=== PATIENT | female | born 1990 | race African-American/Black ===

== ENCOUNTER 2016-10-01 08:10 | Emergency (ER) | payer SELFPAY ==
[~2016-10-01] VITALS: Ht 167.6 cm; Wt 69.9 kg
[2016-10-01] MEDS ORDERED: PRENATAL COMPL1 EAC1 PO (08:18)
--- NOTE | 2016-10-01 08:26 | Emergency Room Report ---
History of Present Illness General Chief Complaint: Complications Source: Patient Present Illness HPI Patient present with complaints of bilateral lower abdominal cramping and pain Patient reports that started last night However did not think much of it As the discomfort continued today patient was concerning came to the ER Patient reports cramping every few minutes No other complaints of vaginal bleeding or spotting Denies any fall or trauma Denies any fevers or chills Allergies: Coded Allergies: No Known Allergies (Unverified , 10/01/16) Patient History Past Medical History: see triage record Pertinent Family History: none Last Menstrual Period: 02/17/2017 Now: Yes : 4 Para: 2 Reviewed Nursing Documentation: PMH: Agreed, PSxH: Agreed Nursing Documentation-PMH Past Medical History: No Stated History Review of Systems All Other Systems: negative except mentioned in HPI Physical Exam Vital Signs Date Time Temp Pulse Resp B/P Pulse Ox O2 Delivery O2 Flow Rate FiO2 10/01/16 08:14 98.4 102 18 123/71 100 Room Air Sp02 EP Interpretation: reviewed, normal General Appearance: well appearing, no apparent distress Head: normocephalic, atraumatic Eyes: bilateral eye EOMI, bilateral eye PERRL ENT: normal pharynx Neck: supple, thyroid normal Respiratory: lungs clear Cardiovascular #1: regular rate, rhythm Gastrointestinal: other - abdomen otherwise nontender on palpation Genitourinary: no CVA tenderness Musculoskeletal: back normal Neurologic: alert, oriented x3, responsive Skin: no rash Lymphatic: no adenopathy Medical Decision Making Diagnostic Impression: Primary Impression: Abdominal pain affecting Additional Impression: UTI (urinary tract infection) ER Course Patient's bedside ultrasound reveals intrauterine heart tone approximately 140-150 Patient's urine sample also shows infectious pathology patient was provided antibiotics for that At this time as we do not have access to OB services patient required higher level of care transfer [facility] labor and delivery was contacted Dr. Cowan accepting the patient Patient will require rule out for early labor Labs Test 10/01/16 08:20 10/01/16 08:33 Urine Color Yellow Urine Appearance Slightly cloudy Urine pH 7 (4.5-8.0) Urine Specific [place] 1.015 (1.005-1.035) Urine Protein 1+ (NEGATIVE) Urine Glucose (UA) Negative (NEGATIVE) Urine Ketones 3+ (NEGATIVE) Urine Occult Blood 2+ (NEGATIVE) Urine Nitrite Negative (NEGATIVE) Urine Bilirubin Negative (NEGATIVE) Urine Urobilinogen 1 MG/DL (0.0-1.0) Urine Leukocyte Esterase 2+ (NEGATIVE) Urine RBC 5-10 /HPF (0 - 2) Urine WBC 5-10 /HPF (0 - 2) Urine Squamous Epithelial Cells Many /LPF (NONE/OCC) Urine Bacteria Few /HPF (NONE) White Blood Count 10.2 K/UL (4.8-10.8) Red Blood Count 3.90 M/UL (4.20-5.40) Hemoglobin 12.0 G/DL (12.0-16.0) Hematocrit 36.0 % (37.0-47.0) Mean Corpuscular Volume 92 FL (80-99) Mean Corpuscular Hemoglobin 30.6 PG (27.0-31.0) Mean Corpuscular Hemoglobin Concent 33.2 G/DL (32.0-36.0) Red Cell Distribution Width 13.1 % (11.6-14.8) Platelet Count 197 K/UL (150-450) Mean Platelet Volume 7.3 FL (6.5-10.1) Neutrophils (%) (Auto) 77.2 % (45.0-75.0) Lymphocytes (%) (Auto) 15.9 % (20.0-45.0) Monocytes (%) (Auto) 6.0 % (1.0-10.0) Eosinophils (%) (Auto) 0.3 % (0.0-3.0) Basophils (%) (Auto) 0.6 % (0.0-2.0) Sodium Level 136 mEQ/L (135-145) Potassium Level 4.0 mEQ/L (3.4-4.9) Chloride Level 96 mEQ/L (98-107) Carbon Dioxide Level 21 mEQ/L (20-30) Anion Gap 19 (5-15) Blood Urea Nitrogen 5 mg/dL (7-23) Creatinine 0.5 mg/dL (0.5-0.9) Estimat Glomerular Filtration Rate > 60 mL/min (>60) Glucose Level 88 mg/dL (74-106) Calcium Level 8.8 mg/dL (8.6-10.2) Total Bilirubin 0.2 mg/dL (0.0-1.2) Aspartate Amino Transf (AST/SGOT) 22 U/L (5-40) Alanine Aminotransferase (ALT/SGPT) 9 U/L (3-33) Alkaline Phosphatase 56 U/L (35-104) Total Protein 6.2 g/dL (6.6-8.7) Albumin 3.4 g/dL (3.5-5.2) Globulin 2.8 g/dL Albumin/Globulin Ratio 1.2 (1.0-2.7) Rhythm Strip Diag. Results EP Interpretation: yes Rate: 88 Rhythm: NSR, no PVC's, no ectopy CT/MRI/US Diagnostic Results CT/MRI/US Diagnostic Results : Impression Bedside ultrasound: Limited, heart tone reported at approximately 140, intrauterine noted Last Vital Signs Date Time Temp Pulse Resp B/P Pulse Ox O2 Delivery O2 Flow Rate FiO2 10/01/16 08:14 98.4 102 18 123/71 100 Room Air Status: improved Disposition: XFER [facility] Condition: Improved Referrals: NOT CHOSEN [facility]/,REFERRING (PCP) NICHOLAS BETTENCOURT D.O. Oct 01, 2016 08:26
[2016-10-01] MEDS ORDERED: NITROFURANTOIN100 M2 ORAL (08:46)
[2016-10-01 08:47] VITALS: BP 114/68
[2016-10-01 08:49] LABS: BASOPHILS % (AUTO) 0.6 % (0.0-2.0); EOSINOPHILS % (AUTO) 0.3 % (0.0-3.0); LYMPHOCYTES % (AUTO) 15.9 % (20.0-45.0); MEAN CORPUSCULAR HEMOGLOBIN 30.6 PG (27.0-31.0); MEAN CORPUSCULAR HGB CONC 33.2 G/DL (32.0-36.0); MEAN CORPUSCULAR VOLUME 92 FL (80-99); MEAN PLATELET VOLUME 7.3 FL (6.5-10.1); NEUTROPHILS % (AUTO) 77.2 % (45.0-75.0); PLATELET COUNT 197 K/UL (150-450); RED CELL DISTRIBUTION WIDTH 13.1 % (11.6-14.8); WHITE BLOOD COUNT 10.2 K/UL (4.8-10.8)
[2016-10-01 08:51] LABS: APPEARANCE,URINE SLIGHTLY CLOUDY; KETONES,URINE 3+ (NEGATIVE); LEUKOCYTE ESTERASE ,URINE 2+ (NEGATIVE); NITRITE,URINE NEGATIVE (NEGATIVE); PH,URINE 7 (4.5-8.0); PROTEIN,URINE 1+ (NEGATIVE); UROBILINOGEN,URINE 1 MG/DL (0.0-1.0)
[2016-10-01 08:59] LABS: ALANINE AMINOTRANSFERASE 9 U/L (3-33); ALBUMIN/GLOBULIN RATIO 1.2 (1.0-2.7); ANION GAP 19 (5-15); ASPARTATE AMINO TRANSFERASE 22 U/L (5-40); CALCIUM 8.8 mg/dL (8.6-10.2); CARBON DIOXIDE 21 mEQ/L (20-30); CHLORIDE 96 mEQ/L (98-107); CREATININE 0.5 mg/dL (0.5-0.9); GLOMERULAR FILTRATION RATE > 60 mL/min (>60); HEMOLYSIS 29; SODIUM 136 mEQ/L (135-145); TOTAL PROTEIN 6.2 g/dL (6.6-8.7)
[2016-10-01 09:15] LABS: BACTERIA,URINE FEW /HPF; SQUAMOUS EPITHELIAL CELL,UR MANY /LPF (NONE/OCC)
[2016-10-01 10:04] VITALS: BP 121/59
== END 2016-10-01 10:15 | disposition short-term general hospital (02) ==
LOC: EMR 08:23
DX: O23.40 Unspecified infection of urinary tract in pregnancy, unspecified trimester (principal); Z3A.00 Weeks of gestation of pregnancy not specified
CPT/HCPCS: 36415; 80053; 81003; 85025; 96374

== ENCOUNTER 2018-07-02 19:12 | Emergency (ER) | payer MEDICAID ==
[~2018-07-02] VITALS: Ht 167.6 cm; Wt 61.2 kg
[~2018-07-02 19:12] MED LIST: NITROFURANTOIN100 M2 ORAL; PRENATAL COMPL1 EAC1 PO
[2018-07-02] MEDS ORDERED: NKM (19:20)
[2018-07-02 19:25] VITALS: BP 109/71
--- NOTE | 2018-07-02 19:25 | NUR ---
ER Nurse Note: Pt came from home c/o left rib pain; 8/10 pain with pressure. Pt states she is unable to put on a bra due to pain. Pt stated no trauma, no redness, no recent injuries. Pain started today. On assessment, left side of rib is slightly swollen, no skin breakdown; heart sounds heard, lung sounds clear in all lobes. Pt is a&ox4, VSS. ER PA at bedside; will continue to [facility].
[2018-07-02] MEDS ORDERED: IBUPROFEN600 MG ORAL (20:25)
--- NOTE | 2018-07-02 20:25 | Emergency Room Report ---
History of Present Illness General Chief Complaint: General Complaint Source: Patient (Omar Guzman) Present Illness HPI 28-year-old female with no significant past medical history here complaining of 3 days of pain over left lower ribs after her daughter bumped her head to patient's chest. Patient denies SOB and chest pain. Patient reports pain 3 out of 10 upon palpation of the affected area and when she is wearing a bra hard while here compressing on the affected area. Patient denies pain radiation and has taken ibuprofen with relief. Denies abdominal pain, nausea vomiting. Denies all other injuries (Omar Guzman) Allergies: Coded Allergies: No Known Allergies (Unverified , 10/01/16) Patient History Past Medical History: see triage record Past Surgical History: none Pertinent Family History: none Last Menstrual Period: 06/21/18 Now: No : 5 Para: 3 Immunizations: UTD Reviewed Nursing Documentation: PMH: Agreed; PSxH: Agreed (Omar Guzman) Nursing Documentation-PMH Past Medical History: No Stated History (Omar Guzman) Review of Systems All Other Systems: negative except mentioned in HPI (Omar Guzman) Physical Exam Vital Signs Date Time Temp Pulse Resp B/P (MAP) Pulse Ox O2 Delivery O2 Flow Rate FiO2 07/02/18 19:16 98.1 70 18 109/71 97 Room Air Sp02 EP Interpretation: reviewed, normal General Appearance: normal inspection, well appearing Head: normocephalic Eyes: bilateral eye normal inspection, bilateral eye PERRL ENT: normal ENT inspection, normal pharynx Neck: normal inspection, full range of motion, supple Respiratory: normal inspection, chest non-tender, lungs clear, no rhonchi, no respiratory distress, no retraction, no accessory muscle use, no wheezing, other - no bony tenderness over the affected area, no hyperresonance, percussion normal Cardiovascular #1: normal inspection, regular rate, rhythm, no murmur Gastrointestinal: normal inspection, non tender, soft Rectal: deferred Genitourinary: deferred Musculoskeletal: back normal, digits/nails normal, gait/station normal, normal range of motion, non-tender Neurologic: normal inspection, alert, oriented x3 Psychiatric: normal inspection Skin: normal inspection, normal color, no rash Lymphatic: normal inspection, no adenopathy (Omar Guzman) Medical Decision Making PA Attestation all diagnosis and treatment plans are reviewed and discussed with my supervising physician Dr. Freire (Omar Guzman) Diagnostic Impression: Primary Impression: Contusion of rib on left side ER Course 28-year-old female with no significant past medical history here complaining of 3 days of pain over left lower ribs after her daughter bumped her head to patient's chest. Patient denies SOB and chest pain. Patient reports pain 3 out of 10 upon palpation of the affected area and when she is wearing a bra hard while here compressing on the affected area. Patient denies pain radiation and has taken ibuprofen with relief. Denies abdominal pain, nausea vomiting. Denies all other injuries Ddx considered but are not limited to fracture, rib contusion, pneumothorax, Vital signs: are WNL, pt. is afebrile H&PE are most consistent with rib contusion ORDERS: left rib series and chest x-ray, ibuprofen, urine test ED INTERVENTIONS: None required at this time. DISCHARGE: At this time pt. is stable for d/c to home. Will provide printed patient care instructions, and any necessary prescriptions. Care plan and follow up instructions have been discussed with the patient prior to discharge. avoid strenuous physical activity, if shows hepatosplenomegaly emergency room, rice guidelines given to patient Urine test negative (Omar Guzman) Chest X-Ray Diagnostic Results Chest X-Ray Diagnostic Results : Chest X-Ray Ordered: Yes # of Views/Limited/Complete: Complete Indication: Other - pain with palpation of left lower ribs PA Xray: Interpretation reviewed, by supervising MD, and agrees with findings. Interpretation: no consolidation, no effusion, no pneumothorax, other - no rib fx Impression: No acute disease Electronically Signed by: omar Bowman PA-C (Omar Guzman) Chest X-Ray Diagnostic Results : Electronically Signed by: P A documentation of Xray reviewed by me and is accurate, Darrell Freire MD (Darrell Freire MD) Other X-Ray Diagnostic Results Other X-Ray Diagnostic Results : Electronically Signed by: P A documentation of Xray reviewed by me and is accurate, Darrell Freire MD (Darrell Freire MD) Last Vital Signs Date Time Temp Pulse Resp B/P (MAP) Pulse Ox O2 Delivery O2 Flow Rate FiO2 07/02/18 19:25 98.1 78 18 109/71 97 Room Air (Omar Guzman) Disposition: HOME, SELF-CARE Condition: Stable Scripts Ibuprofen* (MOTRIN*) 600 Mg Tablet 600 MG ORAL Q8H PRN for For Pain, #30 TAB 0 Refills Prov: Omar Guzman 07/02/18 Referrals: [facility],REFERRING (PCP) Patient Instructions: Rib Contusion Additional Instructions: E wearing bras where the wire, and weight training as physical activity and heavy lifting and take medication as directed. Arthritis been icing and heating the affected area if symptoms worsen return to emergency room Omar Guzman Jul 02, 2018 20:24 Darrell Freire MD Jul 03, 2018 01:31
[2018-07-02 20:36] VITALS: BP 109/71
--- NOTE | 2018-07-02 20:36 | NUR ---
ER Nurse Note: Pt seen, treated, medically cleared for discharge by ER PA. Discharge instructions and prescriptions given with repeat verbalization by pt. Instructed pt to follow up with primary care provider for follow up appointment. Pt a&ox4, VSS, no signs of distress. ID band removed. Pt ambulatory, left with all belongings via own transportation.
--- NOTE | 2018-07-03 10:57 | Diagnostic Imaging Report ---
Indication: Left upper rib pain Technique: One view of the chest, 2 views of the left ribs Comparison: none Findings: Chest radiograph demonstrates clear lungs. No infiltrates, effusions, or congestion. Normal heart size. No pneumothorax Rib images demonstrate no evidence of acute fracture. There is questionably a chronic fracture deformity of the left 11th rib. Impression: Negative
== END 2018-07-02 20:37 | disposition home or self-care (01) ==
LOC: EMR 19:30
DX: S20.212A Contusion of left front wall of thorax, initial encounter (principal); W51.XXXA Accidental striking against or bumped into by another person, initial encounter; Y92.89 Other specified places as the place of occurrence of the external cause
CPT/HCPCS: 81025; 99283